=== PATIENT | female | born 1970 | race Asian ===

== ENCOUNTER 2017-03-25 10:09 | Emergency (ER) | payer MEDICAID ==
[~2017-03-25] VITALS: Ht 165.1 cm; Wt 73.9 kg
[~2017-03-25 10:09] MED LIST: ONDA4TAB8 SL; PANT40TA2 PO; RISP0.5T45 PO; SUCR1SUS10 PO
[2017-03-25 11:23] LABS: Basophils # (auto) 0 uL; Basophils % (auto) 0.7 % (0.0-2.0); Eosinophils # (auto) 0 uL; Eosinophils % (auto) 0.5 % (0.0-7.0); Hematocrit 43.4 % (36.0-46.0); Hemoglobin 14.6 g/dL (12.2-16.2); Lymphocytes # (auto) 1.6 uL; Lymphocytes % (auto) 21.2 % (10.0-50.0); Mean Corpuscular Hemoglobin 30.5 pg (28.0-32.0); Mean Corpuscular Hgb Conc. 33.7 g/dL (32.0-36.0); Mean Corpuscular Volume 90.4 fL (80.0-100.0); Mean Platelet Volume 8.6 fL (6.9-10.8); Monocytes # (auto) 0.8 uL; Monocytes % (auto) 10.6 % (0.0-12.0); Platelet Count (auto) 293 10^3/uL (140-450); Red Cell Distribution Width 13.3 % (11.8-14.3); White Blood Cell 7.5 10^3/uL (4.4-10.8)
[2017-03-25 11:37] LABS: Albumin 3.9 g/dL (3.4-5.0); BUN/Creatinine Ratio 12.5; Calcium 8.6 mg/dL (8.5-10.1); Total Protein 8.2 g/dL (6.4-8.2)
[2017-03-25] MEDS ORDERED: SODIUM CHLORIDE 0.9% 1,000 ML IV ONE (16:13)
[2017-03-25] MEDS ORDERED: POTASSIUM CHL 10% (20 MEQ/15ML) 15ml ORAL SOLN PO ONE (17:15)
[2017-03-25 18:03] LABS: Urine Bilirubin Negative (Negative); Urine Blood Negative /uL (Negative); Urine Color Colorless (Yellow); Urine Glucose Normal (Normal); Urine Ketone TRACE (Negative); Urine Nitrite Negative (Negative); Urine RBC 1 /hpf (0 - 4); Urine Squamous Epithelial Cell FEW /hpf (<5); Urine Urobilinogen Normal (Negative)
[2017-03-25] MEDS ORDERED: OLANZapine 5 MG TAB PO ONE (18:45)
[2017-03-25] MEDS ORDERED: BENZTROPINE MESY 0.5 MG TAB PO ONE (22:45)
[2017-03-25] MEDS ORDERED: risperiDONE 1 MG TAB PO ONE (22:45)
[2017-03-26] MEDS ORDERED: LORazepam 0.5 MG TAB PO PRN (14:15)
[2017-03-27] MEDS ORDERED: risperiDONE 1 MG TAB PO ONE (04:00)
[2017-03-27] MEDS ORDERED: BENZTROPINE MESY 0.5 MG TAB PO ONE (04:00)
[2017-03-27 09:13] VITALS: BP 147/94
[2017-03-27] MEDS ORDERED: BENZTROPINE MESY 0.5 MG TAB PO SCH (22:00)
[2017-03-27] MEDS ORDERED: risperiDONE 1 MG TAB PO SCH (22:00)
== END 2017-03-27 15:17 | disposition short-term general hospital (02) ==
LOC: ER 10:09
DX: F23 Brief psychotic disorder (principal); F31.9 Bipolar disorder, unspecified; E87.6 Hypokalemia; E78.5 Hyperlipidemia, unspecified; F41.9 Anxiety disorder, unspecified; R45.851 Suicidal ideations
CPT/HCPCS: 36415; 71010; 80053; 80307; 81001; 83735; 84443; 85025; 93005; 94761; 96360; 96361; 99285; J7030

== ENCOUNTER 2019-09-19 10:02 | Emergency (ER) | payer MEDICAID ==
[~2019-09-19] VITALS: Ht 165.1 cm; Wt 74.4 kg
[~2019-09-19 10:02] MED LIST changes: +ONDA-101 SL; -ONDA4TAB8 SL
[2019-09-19 10:28] LABS: Basophils # (auto) 0 10 ^3/uL (0-0.2); Basophils % (auto) 0.7 % (0.0-2.0); Eosinophils # (auto) 0.1 10 ^3/uL (0-0.8); Eosinophils % (auto) 0.8 % (0.0-7.0); Hematocrit 42.9 % (36.0-46.0); Hemoglobin 14.2 g/dL (12.2-16.2); Lymphocytes # (auto) 1.8 10 ^3/uL (0.4-5.4); Lymphocytes % (auto) 26.6 % (10.0-50.0); Mean Corpuscular Hemoglobin 29.8 pg (28.0-32.0); Mean Corpuscular Hgb Conc. 33.2 g/dL (32.0-36.0); Monocytes # (auto) 0.5 10 ^3/uL (0-1.3); Monocytes % (auto) 7.2 % (0.0-12.0); Neutrophils # (auto) 4.4 10 ^3/uL (1.6-8.6); Neutrophils % (auto) 64.7 % (37.0-80.0); Nucleated Red Blood Cells % 0.1 %; Platelet Count (auto) 296 10^3/uL (140-450); Red Blood Cells 4.77 10^6/uL (4.0-5.20); White Blood Cell 6.8 10^3/uL (4.4-10.8)
[2019-09-19 10:33] VITALS: BP 128/78
== END 2019-09-19 11:33 | disposition home or self-care (01) ==
LOC: ER 10:02
DX: N92.4 Excessive bleeding in the premenopausal period (principal); N39.0 Urinary tract infection, site not specified
CPT/HCPCS: 36415; 81025; 84702; 85025

== ENCOUNTER 2020-11-26 10:13 | Emergency (ER) | payer MEDICAID ==
[~2020-11-26] VITALS: Ht 165.1 cm; Wt 77.1 kg
[2020-11-26] MEDS ORDERED: ONDANSETRON HCL 4 MG/2 ML VIAL IV ONE (10:45)
[2020-11-26] MEDS ORDERED: SODIUM CHLORIDE 0.9% 1,000 ML IV ONE ×2 (10:45)
[2020-11-26 11:12] LABS: Basophils # (auto) 0.1 10 ^3/uL (0-0.2); Basophils % (auto) 1.4 % (0.0-2.0); Eosinophils # (auto) 0.1 10 ^3/uL (0-0.8); Eosinophils % (auto) 1.5 % (0.0-7.0); Hematocrit 41.4 % (36.0-46.0); Lymphocytes # (auto) 1.2 10 ^3/uL (0.4-5.4); Lymphocytes % (auto) 23.4 % (10.0-50.0); Mean Corpuscular Hemoglobin 29.6 pg (28.0-32.0); Mean Corpuscular Hgb Conc. 33.9 g/dL (32.0-36.0); Mean Corpuscular Volume 87.5 fL (80.0-100.0); Monocytes # (auto) 0.5 10 ^3/uL (0-1.3); Monocytes % (auto) 9.8 % (0.0-12.0); Neutrophils # (auto) 3.4 10 ^3/uL (1.6-8.6); Neutrophils % (auto) 63.9 % (37.0-80.0); Nucleated Red Blood Cells % 0.1 %; Red Blood Cells 4.74 10^6/uL (4.0-5.20); Red Cell Distribution Width 13.5 % (11.8-14.3); White Blood Cell 5.3 10^3/uL (4.4-10.8)
[2020-11-26 11:35] LABS: Albumin 3.8 g/dL (3.4-5.0); Calcium 8.7 mg/dL (8.5-10.1); Potassium 3.6 mmol/L (3.5-5.1)
[2020-11-26 11:41] LABS: Urine Bacteria FEW /hpf (None Seen); Urine Blood Negative /uL (Negative); Urine Specific Gravity 1.004 (1.001-1.035); Urine WBC 3 /hpf (0 - 5)
[2020-11-26 11:49] LABS: BUN/Creatinine Ratio 20.9; Total Protein 7.5 g/dL (6.4-8.2)
[2020-11-26 12:08] VITALS: BP 125/63
== END 2020-11-26 13:41 | disposition home or self-care (01) ==
LOC: ER 10:13
DX: R11.2 Nausea with vomiting, unspecified (principal); F41.9 Anxiety disorder, unspecified; E78.5 Hyperlipidemia, unspecified; Z79.899 Other long term (current) drug therapy
CPT/HCPCS: 36415; 80053; 81001; 85025; 93005; 96361; 96374; 99284; J2405

== ENCOUNTER 2021-07-27 10:06 | Emergency (ER) | payer MEDICAID ==
[~2021-07-27] VITALS: Ht 167.6 cm; Wt 78.0 kg
[2021-07-27 10:45] VITALS: BP 141/84
[2021-07-27] MEDS ORDERED: LORazepam 2MG/ML-1ML VIAL IM ONE (11:00)
== END 2021-07-27 11:28 | disposition home or self-care (01) ==
LOC: ER 10:06
DX: F31.9 Bipolar disorder, unspecified (principal); Z51.81 Encounter for therapeutic drug level monitoring
CPT/HCPCS: 96372; 99283; J2060

== ENCOUNTER 2021-07-28 12:59 | Inpatient (IN) | payer MEDICAID ==
[~2021-07-28] VITALS: Ht 172.7 cm; Wt 77.4 kg
[2021-07-28] MEDS ORDERED: SODIUM CHLORIDE 0.9% 500 ML IVB ONE (13:15)
[2021-07-28 13:57] LABS: Basophils # (auto) 0.1 10 ^3/uL (0-0.2); Basophils % (auto) 0.9 % (0.0-2.0); Eosinophils # (auto) 0 10 ^3/uL (0-0.8); Eosinophils % (auto) 0.2 % (0.0-7.0); Hematocrit 39.6 % (36.0-46.0); Hemoglobin 13.3 g/dL (12.2-16.2); Lymphocytes # (auto) 1.5 10 ^3/uL (0.4-5.4); Lymphocytes % (auto) 21.6 % (10.0-50.0); Mean Corpuscular Hemoglobin 29.5 pg (28.0-32.0); Mean Corpuscular Hgb Conc. 33.6 g/dL (32.0-36.0); Mean Corpuscular Volume 87.7 fL (80.0-100.0); Monocytes # (auto) 0.8 10 ^3/uL (0-1.3); Neutrophils # (auto) 4.7 10 ^3/uL (1.6-8.6); Neutrophils % (auto) 66.3 % (37.0-80.0); Nucleated Red Blood Cells % 0.2 %; Red Blood Cells 4.52 10^6/uL (4.0-5.20); Red Cell Distribution Width 14.1 % (11.8-14.3); White Blood Cell 7.1 10^3/uL (4.4-10.8)
[2021-07-28 14:14] LABS: Albumin 3.7 g/dL (3.4-5.0); Anion Gap 4 (5-15); Blood Urea Nitrogen 13 mg/dL (7-18); Calcium 9.3 mg/dL (8.5-10.1); Carbon Dioxide 27 mmol/L (21-32); Chloride 110 mmol/L (98-107); Glucose 181 mg/dL (74-106); Magnesium 2.5 mg/dL (1.6-2.6); Potassium 3.1 mmol/L (3.5-5.1); Salicylate < 1.7 mg/dL (2.8-20.0); Sodium 141 mmol/L (136-145)
[2021-07-28 14:15] LABS: Alanine Aminotransferase 22 U/L (13-56); Aspartate Aminotransferase 13 U/L (15-37); BUN/Creatinine Ratio 16.7; GFR African American 100 mL/min; GFR Non-African American 83 mL/min
[2021-07-28 14:23] LABS: Alkaline Phosphatase 83 U/L (45-117); Bilirubin, Total 0.6 mg/dL (0.2-1.0); Blood Alcohol < 3.0 mg/dL (0-5); Total Protein 7.5 g/dL (6.4-8.2)
[2021-07-28 14:28] LABS: Acetaminophen < 2.0 ug/mL (10-30)
[2021-07-28] MEDS ORDERED: SODIUM CHLORIDE 0.9% 1,000 ML IV ONE (18:00)
[2021-07-28] MEDS ORDERED: POTASSIUM CHL 20MEQ/100ML 100 ML IV ONE (18:00)
[2021-07-28 18:26] LABS: Urine Bacteria FEW /hpf (None Seen); Urine Blood Negative /uL (Negative); Urine Specific Gravity 1.006 (1.001-1.035); Urine WBC 4 /hpf (0 - 5)
[2021-07-28 18:42] LABS: Alcohol, Urine < 3.0 mg/dL (0-10); Amphetamine Screen, Urine NEGATIVE (NEGATIVE); Benzodiazephine Screen, Urine NEGATIVE (NEGATIVE); Cannabinoid Screen, Urine NEGATIVE (NEGATIVE); Cocaine Screen, Urine NEGATIVE (NEGATIVE); Opiate Scree,Urine NEGATIVE (NEGATIVE); Phencyclidine Screen, Urine NEGATIVE (NEGATIVE)
[2021-07-28 19:36] LABS: Barbiturate Scree,Urine NEGATIVE (NEGATIVE)
[2021-07-29 02:11] VITALS: BP 135/77
[2021-07-29 05:00] VITALS: BP 139/76
[2021-07-29 05:50] LABS: Calcium 8.7 mg/dL (8.5-10.1); Potassium 3.4 mmol/L (3.5-5.1)
[2021-07-29 05:51] LABS: BUN/Creatinine Ratio 15.4
[2021-07-29] MEDS ORDERED: RISP1TAB63 PO ×2 (06:58)
[2021-07-29 08:00] VITALS: BP 169/91
[2021-07-29] MEDS ORDERED: POLYETHYLENE GLYCOL 17 GM PWDR PO ONE (12:00)
[2021-07-29 12:30] VITALS: BP 147/80
[2021-07-29] MEDS ORDERED: DOCUSATE SOD 100 MG CAP PO SCH (14:00)
[2021-07-29 17:00] VITALS: BP 145/87
[2021-07-29] MEDS ORDERED: LORazepam 0.5 MG TAB PO PRN (17:00)
[2021-07-29] MEDS ORDERED: CYANOCOBALAMIN (B-12) 1000 MCG/1 ML VIAL SUBCUT ONE (17:15)
[2021-07-29] MEDS ORDERED: POLY335015 PO ×2 (17:19)
[2021-07-29] MEDS ORDERED: CYAN1LOZ PO ×2 (17:19)
[2021-07-29] MEDS ORDERED: LORA1TAB23 PO ×2 (17:19)
[2021-07-30 08:06] LABS: RPR Non Reactive (Non Reactive)
[2021-07-30] MEDS ORDERED: POLYETHYLENE GLYCOL 17 GM PWDR PO PRN (12:00)
== END 2021-07-29 21:00 | disposition home health service (06) | DRG 247 ==
LOC: EDBD 12:59 → ER 12:59 → OVERFLOW 17:51 → WEST WING 23:38
PROVIDERS: ADMIT Internal Medicine; ATTEND Internal Medicine
DX: K56.41 Fecal impaction (principal); F20.2 Catatonic schizophrenia; E53.8 Deficiency of other specified B group vitamins; F31.9 Bipolar disorder, unspecified; K21.9 Gastro-esophageal reflux disease without esophagitis; Z20.822 Contact with and (suspected) exposure to COVID-19; Z82.49 Family history of ischemic heart disease and other diseases of the circulatory system
CPT/HCPCS: 36415; 70450; 70551; 74176; 80048; 80053; 80307; 80320; 80329; 81001; 82140; 82607; 83735; 84443; 84484; 85025; 86592; 93005; 95819; 96361; 96365; G0378; J3480

== ENCOUNTER 2021-07-31 17:24 | Emergency (ER) | payer MEDICAID ==
[~2021-07-31] VITALS: Ht 167.6 cm; Wt 74.8 kg
[~2021-07-31 17:24] MED LIST changes: +CYAN1LOZ PO; +LORA1TAB23 PO; -ONDA-101 SL; +POLY335015 PO; -RISP0.5T45 PO; -SUCR1SUS10 PO
[2021-07-31 19:40] LABS: Basophils # (auto) 0 10 ^3/uL (0-0.2); Basophils % (auto) 0.6 % (0.0-2.0); Eosinophils # (auto) 0.1 10 ^3/uL (0-0.8); Eosinophils % (auto) 0.8 % (0.0-7.0); Hematocrit 40.1 % (36.0-46.0); Hemoglobin 13.4 g/dL (12.2-16.2); Lymphocytes # (auto) 1.5 10 ^3/uL (0.4-5.4); Lymphocytes % (auto) 18.4 % (10.0-50.0); Mean Corpuscular Hemoglobin 29.2 pg (28.0-32.0); Mean Corpuscular Hgb Conc. 33.4 g/dL (32.0-36.0); Mean Corpuscular Volume 87.5 fL (80.0-100.0); Monocytes # (auto) 0.8 10 ^3/uL (0-1.3); Monocytes % (auto) 10.3 % (0.0-12.0); Neutrophils # (auto) 5.5 10 ^3/uL (1.6-8.6); Neutrophils % (auto) 69.9 % (37.0-80.0); Red Blood Cells 4.59 10^6/uL (4.0-5.20); Red Cell Distribution Width 13.9 % (11.8-14.3); White Blood Cell 7.9 10^3/uL (4.4-10.8)
[2021-07-31 19:54] LABS: Albumin 3.9 g/dL (3.4-5.0); Anion Gap 10 (5-15); Blood Alcohol < 3.0 mg/dL (0-5); Blood Urea Nitrogen 9 mg/dL (7-18); Calcium 9.1 mg/dL (8.5-10.1); Carbon Dioxide 25 mmol/L (21-32); Chloride 106 mmol/L (98-107); Glucose 107 mg/dL (74-106); Potassium 3.1 mmol/L (3.5-5.1); Sodium 141 mmol/L (136-145)
[2021-07-31 19:58] LABS: Alanine Aminotransferase 27 U/L (13-56); Alkaline Phosphatase 80 U/L (45-117); Aspartate Aminotransferase 24 U/L (15-37); Bilirubin, Total 1.5 mg/dL (0.2-1.0); GFR African American 105 mL/min; GFR Non-African American 87 mL/min; Total Protein 7.8 g/dL (6.4-8.2)
[2021-07-31] MEDS ORDERED: risperiDONE 1 MG TAB PO ONE (21:45)
[2021-07-31 22:16] LABS: Amphetamine Screen, Urine NEGATIVE (NEGATIVE); Barbiturate Scree,Urine NEGATIVE (NEGATIVE); Benzodiazephine Screen, Urine NEGATIVE (NEGATIVE); Cannabinoid Screen, Urine NEGATIVE (NEGATIVE); Cocaine Screen, Urine NEGATIVE (NEGATIVE); Opiate Scree,Urine NEGATIVE (NEGATIVE); Phencyclidine Screen, Urine NEGATIVE (NEGATIVE)
[2021-07-31 22:23] LABS: Urine Bacteria MOD /hpf (None Seen); Urine Blood 1+ /uL (Negative); Urine Mucus FEW (None Seen); Urine Specific Gravity 1.018 (1.001-1.035); Urine WBC 37 /hpf (0 - 5)
[2021-07-31] MEDS ORDERED: CEFTRIAXONE SODIUM 2 GM in D5W 5% 50 ML IV ONE (23:30)
[2021-08-01] MEDS ORDERED: LORazepam 2MG/ML-1ML VIAL IM ONE (01:30)
[2021-08-01] MEDS ORDERED: diphenhdrAMINE HCL 50 MG/1 ML VL IM ONE (01:30)
[2021-08-01] MEDS ORDERED: HALOPERIDOL LACTATE 5 MG/ML INJ VIAL IM ONE (01:30)
[2021-08-01] MEDS ORDERED: cefTRIAXone 1GM/50ML D5W 0 ML IV ONE (02:40)
[2021-08-01] MEDS ORDERED: cefTRIAXone SOD 1,000 MG VL ONE (02:43)
[2021-08-01] MEDS ORDERED: POTASSIUM EFFERVESENT TAB 25 MEQ PO ONE (08:00)
[2021-08-01] MEDS ORDERED: ONDANSETRON HCL 4 MG/2 ML VIAL ONE (12:52)
[2021-08-01] MEDS ORDERED: ONDANSETRON HCL 4 MG/2 ML VIAL IV ONE (13:00)
[2021-08-01] MEDS ORDERED: LORazepam 2MG/ML-1ML VIAL IV ONE (18:15)
[2021-08-01] MEDS: LORazepam 2MG/ML-1ML VIAL IV SCH (22:30)
[2021-08-02] MEDS: LORazepam 2MG/ML-1ML VIAL IV SCH (06:00)
[2021-08-02] MEDS ORDERED: POTASSIUM EFFERVESENT TAB 25 MEQ PO ONE (21:00)
[2021-08-04] MEDS ORDERED: KETOROLAC TROMETH 30 MG/ML 1ML VIAL IV ONE (01:45)
[2021-08-04] MEDS ORDERED: KETOROLAC TROMETH 30 MG/ML 1ML VIAL ONE (01:53)
[2021-08-04 02:18] LABS: Urine Bacteria FEW /hpf (None Seen); Urine Blood 1+ /uL (Negative); Urine Mucus FEW (None Seen); Urine Specific Gravity 1.027 (1.001-1.035); Urine WBC 29 /hpf (0 - 5)
[2021-08-04] MEDS ORDERED: CEPHALEXIN 250 MG CAP PO ONE (04:13)
[2021-08-04] MEDS: CEPHALEXIN 250 MG CAP PO SCH ×4 (04:17→23:32)
[2021-08-04] MEDS ORDERED: LORazepam 2MG/ML-1ML VIAL ONE (09:42)
[2021-08-04] MEDS: LORazepam 2MG/ML-1ML VIAL IV PRN (20:49)
[2021-08-05] MEDS ORDERED: diphenhdrAMINE HCL 50 MG/1 ML VL IM ONE (00:15)
[2021-08-05] MEDS: LORazepam 2MG/ML-1ML VIAL IV PRN (06:03)
[2021-08-05] MEDS: CEPHALEXIN 250 MG CAP PO SCH ×4 (06:09→22:00)
[2021-08-06] MEDS: LORazepam 2MG/ML-1ML VIAL IV PRN (04:39)
[2021-08-06] MEDS: CEPHALEXIN 250 MG CAP PO SCH ×4 (09:43→22:16)
[2021-08-07] MEDS: CEPHALEXIN 250 MG CAP PO SCH (06:45)
[2021-08-09] MEDS ORDERED: OLANZapine 5 MG TAB PO ONE (03:45)
[2021-08-09] MEDS ORDERED: OLANZapine 5 MG TAB ONE (04:12)
[2021-08-09 07:17] VITALS: BP 126/78
== END 2021-08-09 09:45 | disposition home or self-care (01) ==
LOC: EDBD 17:24 → ER 17:24
DX: F29 Unspecified psychosis not due to a substance or known physiological condition (principal); R45.850 Homicidal ideations; N39.0 Urinary tract infection, site not specified; E78.5 Hyperlipidemia, unspecified
CPT/HCPCS: 36415; 71046; 80053; 80307; 80320; 81001; 84443; 84702; 85025; 87426; 93005; 96365; 96372; 96375; 96376; 99285; J0696; J1200; J2060; J7060